=== PATIENT | male | born 1940 | race Caucasian/White ===

== ENCOUNTER 2019-03-07 04:31 | Inpatient (IN) ==
[2019-03-07] MEDS ORDERED: Ipratropium/Albuterol Neb 3 ML IH ONE (04:43)
[2019-03-07 05:20] LABS: Basophils % 0.2 %; Eosinophils # 0.1 K/mcL (0.0-0.6); Eosinophils % 0.4 %; Hematocrit 54.8 % (37.5-50.1); Hemoglobin 19.4 g/dL (12.9-16.9); Immature Granulocytes % 0.4 % (0-4); Lymphocytes # 2.9 K/mcL (0.6-4.6); Lymphocytes % 19.2 %; Mean Corpuscular HGB Conc 35.4 g/dL (31.6-35.5); Mean Corpuscular Hemoglobin 32.9 pg (28.0-33.3); Monocytes # 0.5 K/mcL (0.0-1.3); Monocytes % 3.2 %; Neutrophils # 11.7 K/mcL (1.6-8.9); Nucleated Red Blood Cells 0.1 /100 WBC (0); Platelet Count 196 K/mcL (140-400); Red Blood Count 5.89 M/mcL (4.19-5.50); Red Cell Distribution Width 13.4 % (11.5-14.5); Segmented Neutrophils % 76.6 %; White Blood Count 15.3 K/mcL (4.3-11.1)
[2019-03-07 05:22] LABS: INR 0.9; Prothrombin Time 10.7 Seconds (9.4-12.1)
[2019-03-07 05:25] LABS: Activated Partial Thrombo Time 28.4 Seconds (26.0-36.0)
[2019-03-07 05:54] LABS: Alanine Aminotransferase 17 Units/L (7-52); Albumin 4.7 g/dL (3.5-5.7); Albumin/Globulin Ratio 2.1 (1.1-2.2); Alkaline Phosphatase 85 Units/L (34-104); Aspartate Amino Transferase 18 Units/L (13-39); BUN/Creatinine Ratio 21 (6-26); Bilirubin,Total 2.8 mg/dL (0.3-1.0); Blood Urea Nitrogen 20 mg/dL (8-23); Calcium 9.7 mg/dL (8.6-10.3); Carbon Dioxide 28 mEq/L (23-29); Chloride 104 mEq/L (98-107); Globulin 2.2 g/dL (2.4-3.5); Glucose 163 mg/dL (70-105); Osmolality,Calculated 294 (280-300); Potassium 4.6 mEq/L (3.5-5.1); Sodium 139 mEq/L (136-145); Total Protein 6.9 g/dL (6.4-8.9); Troponin I < 0.03 ng/mL (< 0.04); eGFR For African Americans > 60 (> 60); eGFR For Non-African Americans > 60 (> 60)
[2019-03-07] MEDS ORDERED: Ondansetron 4 MG/2 ML VIAL IVP ONE (06:13)
[2019-03-07 06:15] LABS: Bilirubin,Urine Small (Negative); Blood,Urine Negative (Negative); Clarity,Urine Clear (Clear); Color,Urine Dark Yellow (Yellow); Glucose,Urine (UA) Normal (Normal); Ketones,Urine 15 mg/dL (Negative); Leukocyte Esterase,Urine Negative (Negative); Nitrite,Urine Negative (Negative); PH,Urine 5.5 pH Units (5.0-8.0); Protein,Urine Trace mg/dL (Neg-Trace); Specific Gravity,Urine 1.023 (1.010-1.025); Urobilinogen,Urine Normal (Normal)
[2019-03-07] MEDS ORDERED: Naloxone 0.4 MG/ML INJ IVP PRN (07:49)
[2019-03-07] MEDS ORDERED: *HR* Promethazine 25 MG/ML VIAL IVP PRN (07:49)
[2019-03-07] MEDS ORDERED: Ondansetron 4 MG/2 ML VIAL IVP PRN (07:49)
[2019-03-07] MEDS: *HR* LORazepam Oral Conc 2 MG/ML SL PRN (09:03)
[2019-03-07] MEDS: *HR* Metoprolol 5 MG/5 ML VIAL IVP SCH ×3 (10:28→17:49)
[2019-03-07] MEDS: Ringers Solution, Lactated 1,000 ML IVC SCH ×2 (10:29→22:51)
[2019-03-07] MEDS ORDERED: Ketorolac 30 MG/ML VIAL IVP ONE (12:21)
[2019-03-07] MEDS ORDERED: Fluticasone Propionate Nasal 50 MCG/SPRAY BOTTLE NS PRN ×2 (12:32→13:02)
[2019-03-07] MEDS ORDERED: methylPREDNISolone 125 MG/2 ML VIAL IVP SCH (12:32)
[2019-03-07] MEDS ORDERED: 0.9 % Sodium Chloride 1,000 ML IVC ONE (13:02)
[2019-03-07 13:23] LABS: Bilirubin,Direct 0.4 mg/dL (0.0-0.2); Bilirubin,Indirect 2.4 mg/dL (0.0-1.0)
[2019-03-08] MEDS: *HR* Metoprolol 5 MG/5 ML VIAL IVP SCH ×2 (00:25→06:26)
[2019-03-08 02:44] LABS: Basophils % 0.2 %; Hematocrit 44.2 % (37.5-50.1); Hemoglobin 15.7 g/dL (12.9-16.9); Immature Granulocytes % 0.4 % (0-4); Immature Platelets 2.6 % (1.1-6.1); Lymphocytes % 23.1 %; Mean Corpuscular HGB Conc 35.5 g/dL (31.6-35.5); Mean Corpuscular Volume 92.9 fL (83.0-100.0); Mean Platelet Volume 10.1 fL (9.4-12.4); Monocytes % 7.6 %; Platelet Count 148 K/mcL (140-400); Red Blood Count 4.76 M/mcL (4.19-5.50); Red Cell Distribution Width 13.6 % (11.5-14.5); Segmented Neutrophils % 68.7 %; White Blood Count 13.2 K/mcL (4.3-11.1)
[2019-03-08 03:05] LABS: BUN/Creatinine Ratio 34 (6-26); Blood Urea Nitrogen 34 mg/dL (8-23); Calcium 8.1 mg/dL (8.6-10.3); Carbon Dioxide 25 mEq/L (23-29); Chloride 106 mEq/L (98-107); Glucose 123 mg/dL (70-105); Osmolality,Calculated 301 (280-300); Potassium 3.5 mEq/L (3.5-5.1); Sodium 141 mEq/L (136-145); eGFR For African Americans > 60 (> 60); eGFR For Non-African Americans > 60 (> 60)
[2019-03-08] MEDS: *HR* LORazepam Oral Conc 2 MG/ML SL PRN (08:26)
[2019-03-08] MEDS: Pantoprazole 40 MG VIAL IVP SCH (08:26)
[2019-03-08] MEDS: Nicotine 14 MG PATCH.TD24 TD SCH (08:26)
[2019-03-08 09:51] LABS: Adenovirus F 40/41 PCR Not detected (Not detect); Astrovirus PCR Not detected (Not detect); C.difficile Toxin A/B Gene PCR Not detected (Not detect); Campylobacter by PCR Not detected (Not detect); Cryptosporidium by PCR Not detected (Not detect); Cyclospora cayetanensis PCR Not detected (Not detect); E. coli O157 by PCR Not detected (Not detect); Entamoeba histolytica PCR Not detected (Not detect); Enteroaggregative E.coli(EAEC) Not detected (Not detect); Enteropathogenic E.coli(EPEC) Not detected (Not detect); Enterotoxigenic E.coli (ETEC) Not detected (Not detect); Giardia lamblia PCR Not detected (Not detect); Norovirus GI/GII PCR DETECTED (Not detect); Plesiomonas shigelloides PCR Not detected (Not detect); Rotavirus A PCR Not detected (Not detect); Salmonella PCR Not detected (Not detect); Sapovirus PCR Not detected (Not detect); Shig/EnteroinvasiveE coli EIEC Not detected (Not detect); Shigalike tox-prod E coli STEC Not detected (Not detect); Vibrio PCR Not detected (Not detect); Vibrio cholerae PCR Not detected (Not detect); Yersinia enterocolitica PCR Not detected (Not detect)
[2019-03-08] MEDS: Ringers Solution, Lactated 1,000 ML IVC SCH (11:57)
[2019-03-08] MEDS: ALPRAZolam 0.5 MG TABLET PO PRN (18:21)
[2019-03-08] MEDS: *HR* Heparin 5,000 UNIT/ML VIAL SQ SCH (21:38)
[2019-03-09] MEDS: Ringers Solution, Lactated 1,000 ML IVC SCH ×2 (01:47→14:35)
[2019-03-09] MEDS: *HR* Heparin 5,000 UNIT/ML VIAL SQ SCH ×2 (06:23→14:35)
[2019-03-09] MEDS: Nicotine 14 MG PATCH.TD24 TD SCH (09:52)
[2019-03-09] MEDS: Pantoprazole 40 MG VIAL IVP SCH (09:55)
[2019-03-09] MEDS: ALPRAZolam 0.5 MG TABLET PO PRN ×2 (09:58→20:35)
[2019-03-10] MEDS: *HR* Heparin 5,000 UNIT/ML VIAL SQ SCH ×2 (03:30→05:13)
[2019-03-10] MEDS: Ringers Solution, Lactated 1,000 ML IVC SCH (05:13)
[2019-03-10 07:19] VITALS: BP 130/70
[2019-03-10] MEDS: Nicotine 14 MG PATCH.TD24 TD SCH (08:20)
[2019-03-10] MEDS: Pantoprazole 40 MG VIAL IVP SCH (08:20)
== END 2019-03-10 10:45 | disposition home or self-care (01) | DRG 389 ==
LOC: CDU 04:31 → EMEROOARM 04:31 → CDU 07:27 → 2NENU 13:59
PROVIDERS: ADMIT Family Medicine; ATTEND Family Medicine